=== PATIENT | female | born 1980 | race Caucasian/White ===

== ENCOUNTER 2017-05-29 07:42 | Emergency (ER) | payer SELFPAY ==
--- NOTE | 2017-05-29 07:51 | ED Physician Chart ---
Chief Complaint/HPI - Patient Information Date Seen:: 05/29/17 Time Seen:: 07:49 Chief Complaint:: ABDOMINAL PAIN 2-3 hours. History of Present Illness:: This 36-year-old female had onset of severe abdominal pain approximately 2-3 hours prior to arrival. The pain is in the epigastric and umbilical regions. She rates the severity of the pain as a 8/10 and says that it is sharp. The pain does not radiate into the back or into the chest. The patient has increased pain with pressure over the abdomen or deep inspiration. There are no relieving factors. The pain is not accompanied by nausea, vomiting, diarrhea , dysuria or chest pain. The patient is status post appendectomy. She has a family history of gallstones. Allergies:: Allergies Allergy/AdvReac Type Severity Reaction Status Date / Time MDX No Known Allergies - Nka Allergy Verified 10/17/14 15:05 [No Known Allergies - Nka] Historian:: Patient Review of Systems - Review of Systems General/Constitutional: No fever, No chills, No weakness, No edema Skin: No skin lesions, No rash, No bruising Head: No headache, No light-headedness Eyes: No loss of vision, No diplopia ENT: No earache, No sore throat Neck: No neck pain, No swelling, No thyromegaly, No stiffness, No mass noted Cardio Vascular: No chest pain, No palpitations, No edema Pulmonary: No SOB, No cough, No sputum, No wheezing GI: No nausea, No vomiting, No diarrhea, No constipation, No hematemesis G/U: No dysuria, No frequency, No hematuria Raw Scales Operator: Vaginal discharge, No abnormal vaginal bleed Musculoskeletal: No bone or joint pain, No back pain, No muscle pain Psychiatric: Prior psych history Hematopoietic: No bruising Allergic/Immuno: No urticaria, No angioedema Neurological: No syncope, No focal symptoms, No weakness, No paresthesia, No headache, No confusion, No vertigo Past Medical History - Past Medical History Past Medical History: No significant medical hx, Other (the patient denies any prior history of diabetes, hypertension, asthma, or heart problems.) Social History: Non Smoker (patient occasionally drinks alcohol.), No Drug Use Employment:: The patient works as a hairdresser. The patient is not and lives with her son and a friend. Surgical History: Appendectomy Psychiatricy History: None Family Medical History - Family Member Father Ethnicity: Living Status: Still Living Physical Exam - Physical Examination General/Constitutional: Awake, Well-developed, well-nourished, Alert, Non-toxic appearing, Ambulatory Other Gen/Cons comments:: I would say the patient is in moderate distress from her complained of abdominal pain. Head: Atraumatic Eyes: Lids, conjuctiva normal, PERRL, EOMI Other Eyes comments:: Sclera are anicteric. Skin: Nl inspection, No rash, No skin lesions, No ecchymosis, Well hydrated, No lymphadenopathy ENMT: External ears, nose nl, Nasal exam nl, Lips, teeth, gums nl, Oropharynx nl , Tonsils nl Other ENMT comments:: Normal hydration of the oral mucosa. Neck: Nontender, Full ROM w/o pain, No JVD, No nuchal rigidity, No mass, No stridor Respiratory: Nl effort/Exclusion, No Wheeze/Rhonchi/Rales Cardio Vascular: No murmur, gallop, rubs, NL S1 S2 Other Cardio Vascular comments:: Patient has good pulses in all 4 extremities. Other GI comments:: The abdomen is mildly distended secondary to obesity. Bowel sounds are present. Palpation the patient has tenderness in the epigastric region the left upper quadrant and the left lower quadrant. There is no hepatomegaly or splenomegaly. No abdominal masses are noted. No hernias are present. : No CVA tenderness Extremities: No tenderness or effusion, Full ROM, normal strength in all extremities, No edema, Normal digits & nails Neuro/Psych: Alert/oriented, Normal sensory exam, Normal motor strength, Judgement/insight normal, Mood normal, Normal gait, No focal deficits Misc: Normal back, No paraspinal tenderness Labs/Radiology/EKG Results - Lab Results Results: Laboratory Tests 05/29/17 05/29/17 05/29/17 08:00 08:00 08:00 WBC 6.5 RBC 4.60 Hgb 14.0 Hct 41.7 MCV 90.6 MCH 30.5 MCHC Differential 33.7 RDW 12.8 Plt Count 345 MPV 7.1 Neutrophils % 49.3 Lymphocytes % 36.2 Monocytes % 8.8 Eosinophils % 4.9 Basophils % 0.8 Sodium Potassium Chloride Carbon Dioxide Anion Gap BUN Creatinine Est GFR ( Amer) Est GFR (Non-Af Amer) BUN/Creatinine Ratio Glucose Calcium Total Bilirubin AST ALT Alkaline Phosphatase Total Protein Albumin Globulin Albumin/Globulin Ratio Amylase Lipase Urine Source RANDOM Urine Color YELLOW Urine Clarity HAZY Urine pH 6.0 Ur Specific [place] 1.025 Urine Protein NEGATIVE Urine Glucose (UA) NEGATIVE Urine Ketones NEGATIVE Urine Blood NEGATIVE Urine Nitrate NEGATIVE Urine Bilirubin NEGATIVE Urine Urobilinogen 0.2 Ur Leukocyte Esterase NEGATIVE Urine RBC 0-2 Urine WBC 0-2 Ur Epithelial Cells FEW Urine Bacteria NONE SEEN Urine Test NEGATIVE 05/29/17 08:00 WBC RBC Hgb Hct MCV MCH MCHC Differential RDW Plt Count MPV Neutrophils % Lymphocytes % Monocytes % Eosinophils % Basophils % Sodium 133 L Potassium 3.9 Chloride 106 Carbon Dioxide 23.5 Anion Gap 7.4 BUN 18 Creatinine 0.7 Est GFR ( Amer) > 60.0 Est GFR (Non-Af Amer) > 60.0 BUN/Creatinine Ratio 25.7 Glucose 98 Calcium 9.0 Total Bilirubin 0.4 AST 17 ALT 17 Alkaline Phosphatase 55 Total Protein 7.3 Albumin 4.0 Globulin 3.3 Albumin/Globulin Ratio 1.2 Amylase 44 Lipase 16 Urine Source Urine Color Urine Clarity Urine pH Ur Specific [place] Urine Protein Urine Glucose (UA) Urine Ketones Urine Blood Urine Nitrate Urine Bilirubin Urine Urobilinogen Ur Leukocyte Esterase Urine RBC Urine WBC Ur Epithelial Cells Urine Bacteria Urine Test The CBC shows no evidence for leukocytosis or anemia. Platelets are within the normal range. Esprit studies show mild hyponatremia of 133 with electrolytes otherwise normal. Renal function is normal. Liver function tests are all within the normal parameters. The urinalysis was negative for UTI. Amylase and lipase were both within the normal parameters. Ultrasound study of the abdomen was negative for cholelithiasis, cholecystitis. Assessment - Assessment General Assessment: REEVALUATION: The patient is pain-free and has been so for the past hour. Examination there is no tenderness on palpation of the abdomen. The patient will be observed another 4-5 hours in the emergency department to see if pain returns. CASE SUMMARY: this 36-year-old female presented with upper [place] pain 2 to 3 hours prior to arriving at the hospital. On physical examination she had pain in the epigastric region and in the left lower quadrant. There was no associated rebounder regarding present. The patient's symptoms were dressed with IV Zofran and morphine. Patient had complete resolution of the pain and on re-examination there was no abdominal tenderness. The patient's laboratory values showed no leukocytosis, anemia, urinary tract infection, normal amylase and lipase, normal renal and hepatic function. An ultrasound of the abdomen was negative for any acute pathology and those stones were present in the gallbladder. The patient was discharged with a diagnosis of abdominal pain unclear etiology, resolved. MDM DDX FOR UPPER ABDOMINAL PAIN. NOT Pancreatitis based on the normal amylase and lipase levels. NOT Biliary colic or acute cholecystitis based on ultrasound study. NOT Renal colic based on the ultrasound and laboratory results. NOT Acute appendicitis based on the patient's history of prior appendectomy. ED Septic Shock - . Is Septic Shock (SBP<90, OR Lactate>4 mmol\L) present?: No Reassessment (Disposition) - Reassessment Reassessment Condition:: Improved - Diagnosis Diagnosis:: ABDOMINAL PAIN, UNCLEAR ETIOLOGY, RESOLVED. - Aftercare/Follow up Instructions Aftercare/Follow-Up Instructions:: Counseled pt regarding lab results/diagnosis & need follow up Notes:: The patient was advised to return to the emergency department if she had recurrence of abdominal pain. ED Discharge Plan - Patient Disposition Admit/Discharge/Transfer: PT DISCHARGED HOME Condition at Disposition: Stable Instructions: Abdominal Pain
[2017-05-29] MEDS ORDERED: Sodium Chloride 0.9% 1,000 ML IV ONE (07:55)
[2017-05-29] MEDS ORDERED: Morphine Sulfate 4 mg/mL 1mL Syr IVP ONE (07:57)
[2017-05-29 08:12] LABS: % BASOPHILS 0.8 % (0.0-2.0); % EOSINOPHILS 4.9 % (0.0-5.0); % LYMPHOCYTES 36.2 % (20.0-50.0); % MONOCYTES 8.8 % (2.0-10.0); % NEUTROPHILS 49.3 % (40.0-80.0); HEMATOCRIT 41.7 % (35.0-45.0); MEAN CELL VOLUME 90.6 fl (81-100); MEAN CORPUSCULAR HEMOGLOBIN 30.5 pg (27.0-31.0); MEAN CORPUSCULAR HGB CONC 33.7 pg (28.0-36.0); MEAN PLATELET VOLUME 7.1 fl; NEUTROPHILE ABSOLUTE 3.1 Th/cmm (1.8-8.0); PLATELET COUNT 345 Th/cmm (150-400); RED CELL DISTRIBUTION WIDTH 12.8 % (11.5-20.0); WHITE BLOOD COUNT 6.5 Th/cmm (4.8-10.8)
[2017-05-29 08:21] LABS: URINE BILIRUBIN NEGATIVE (NEGATIVE); URINE BLOOD NEGATIVE (NEGATIVE); URINE GLUCOSE (UA) NEGATIVE (NEGATIVE); URINE KETONE NEGATIVE (NEGATIVE); URINE PROTEIN NEGATIVE (NEGATIVE); URINE UROBILINOGEN 0.2 E.U./dL (0.2 - 1.0)
[2017-05-29 08:27] LABS: ALB/GLOB RATIO 1.2 (1.0-1.8); ALKALINE PHOSPHATASE 55 U/L (34-104); AMYLASE SERUM 44 U/L (29-103); ANION GAP 7.4 (7.0-16.0); BILIRUBIN,TOTAL 0.4 mg/dL (0.3-1.0); BUN - UREA NITROGEN 18 mg/dL (7-25); BUN/CREATININE RATIO 25.7; CARBON DIOXIDE 23.5 mEq/L (21.0-31.0); CHLORIDE 106 mEq/L (98-107); CREATININE - SERUM 0.7 mg/dL (0.6-1.2); GLUCOSE 98 mg/dL (70-105); LIPASE 16 U/L (11-82); POTASSIUM SERUM 3.9 mEq/L (3.5-5.1); SGOT 17 U/L (13-39); SGPT/ALT 17 U/L (7-52); SODIUM SERUM 133 mEq/L (136-145)
[2017-05-29 08:44] LABS: URINE COLOR YELLOW
[2017-05-29 08:47] LABS: URINE BACTERIA NONE SEEN /hpf (NONE SEEN); URINE EPITHELIAL CELLS FEW /lpf (FEW); URINE RBC 0-2 /hpf (0-5); URINE WBC 0-2 /hpf (0-5)
--- NOTE | 2017-05-29 11:00 | Diagnostic Imaging Report ---
Exam: Ultrasound examination abdomen. HISTORY: Generalized abdominal pain. Findings: Real-time ultrasound examination abdomen performed multiple planes. The study demonstrates normal echogenicity liver parenchyma. The gallbladder free of calculi the common bile duct measures 3.4 mm diameter. The kidneys demonstrate no evidence of obstructive uropathy or nephrolithiasis. Right kidney measures 11.7 x 5.1 x 5.2 cm in diameter left kidney measures 10.0 x 5.7 x 4 cm diameter. Spleen is intact. The pancreas poorly seen The study is limited due to patient body habitus and large amount of intra-abdominal bowel gas. impression: Essentially unremarkable sedation the abdomen, limited study due to body habitus and large amount of intra-abdominal bowel gas.
== END 2017-05-29 14:19 | disposition home or self-care (01) ==
LOC: ER 07:42
DX: R10.13 Epigastric pain (principal); Z90.49 Acquired absence of other specified parts of digestive tract
CPT/HCPCS: 99285; 96374; 96375; 76700; 36415; 85025; 81001; 82150; 81025; 83690; 80053; J2405; J2270; J7030